=== PATIENT | male | born 1990 | race Caucasian/White ===

== ENCOUNTER 2022-12-01 15:05 | Emergency (ER) | payer MEDICAID ==
[~2022-12-01] VITALS: Ht 167.6 cm; Wt 84.4 kg
[2022-12-01 15:20] VITALS: BP 124/78; PULSE 72; RESP 16; TEMP 98; O2SAT 98
[2022-12-01] MEDS ORDERED: KETOROLAC 30 MG/ML VIAL IM ONE (15:45)
[2022-12-01] MEDS ORDERED: HYDROcodone/APAP 5/325 MG 1 TAB TAB PO ONE (15:45)
[2022-12-01] MEDS ORDERED: ACET-8905 PO (17:51)
[2022-12-01] MEDS ORDERED: IBUP-2213 PO (17:51)
== END 2022-12-01 18:00 | disposition home or self-care (01) ==
LOC: MED 15:05
DX: S93.492A Sprain of other ligament of left ankle, initial encounter (principal); S83.8X2A Sprain of other specified parts of left knee, initial encounter; X58.XXXA Exposure to other specified factors, initial encounter; Y93.89 Activity, other specified; Y92.89 Other specified places as the place of occurrence of the external cause; Y99.8 Other external cause status
CPT/HCPCS: 29505; 73552; 73590; 73610; 73630; 96372; 99284; J1885